=== PATIENT | female | born 1960 | race Caucasian/White ===

== ENCOUNTER → 2020-08-15 | Day surgery (SDC) | payer MEDICARE, SELFPAY ==
[~2020-08-15] MED LIST: CARAFATE1 GM PO; PROTONIX 40MG T40 MG PO; SYNTHROID88 MCG PO; TRAZODONE 100M100 MG PO; VENLAFAXINE HC150 MG PO; ZOCOR10 MG PO
== END | disposition home or self-care (01) ==
LOC: FAS 07:50
DX: K62.1 Rectal polyp (principal); K29.50 Unspecified chronic gastritis without bleeding; K31.89 Other diseases of stomach and duodenum; K21.00 Gastro-esophageal reflux disease with esophagitis, without bleeding; K22.10 Ulcer of esophagus without bleeding; K52.9 Noninfective gastroenteritis and colitis, unspecified; K64.0 First degree hemorrhoids; K44.9 Diaphragmatic hernia without obstruction or gangrene; F32.9 Major depressive disorder, single episode, unspecified; Z86.010 Personal history of colon polyps; Z79.82 Long term (current) use of aspirin; Z79.899 Other long term (current) drug therapy
CPT/HCPCS: 88305; J2250; J2704; J7120

== ENCOUNTER 2021-07-27 07:30 | Inpatient (IN) | payer MEDICARE, OTHER ==
[~2021-07-27] VITALS: Ht 162.6 cm; Wt 72.6 kg
[~2021-07-27 07:30] MED LIST changes: +ALL DAY ALLERGY10 MG PO; +ASCORBIC ACID500 MG PO; +BLACK COHOSH40 M1 PO; +DRISDOL50000 UNIT PO; +FIBER POWDER368 GM PO; +FLAX OIL1000 MG PO; +NEURIVA PLUS B1 EACH PO; +OSTEO BI-FLEX1 EACH PO; +TURMERIC1 GM PO
[2021-07-27 12:07] LABS: BASOPHIL 0.9 % (0-2); EOSINOPHIL 1.8 % (0-5); HCT 41.8 % (37.0-47.0); HGB 13.8 g/dl (12.5-16.0); LYMPHOCYTE 33.4 % (15-48); MCH 30.2 pg (25.0-31.0); MCV 91.5 fL (78.0-100.0); MONOCYTE 8.3 % (0-12); MPV 8.9 fL (6.0-9.5); NEUTROPHIL 55.2 % (41-80); NRBC 0; PLT 312 K/uL (150-400); RBC 4.57 M/uL (4.20-5.40); RDW 12.1 % (11.5-14.0); WBC 6.8 K/uL (4.0-10.5)
[2021-07-27 13:04] LABS: ALBUMIN 3.6 g/dL (3.4-5.0); BILIRUBIN - TOTAL 0.3 mg/dL (0.2-1.0); BUN/CREAT RATIO (CALC) 18.1 RATIO; CREATININE 0.72 mg/dL (0.51-0.95); GLOBULIN (CALCULATION) 3.2 g/dL; POTASSIUM 4.1 mmol/L (3.5-5.1); TOTAL PROTEIN 6.8 g/dL (6.4-8.2)
[2021-07-28 07:26] LABS: HCT 37.1 % (37.0-47.0); HGB 12.3 g/dl (12.5-16.0); MCH 30.8 pg (25.0-31.0); MCHC 33.2 g/dL (32.0-36.0); MCV 92.8 fL (78.0-100.0); MPV 8.8 fL (6.0-9.5); RDW 12.1 % (11.5-14.0); WBC 8.6 K/uL (4.0-10.5)
[2021-07-28 07:46] LABS: BUN/CREAT RATIO (CALC) 10.9 RATIO; CREATININE 0.64 mg/dL (0.51-0.95)
[2021-07-28] MEDS ORDERED: COLACE100 MG PO (08:42)
[2021-07-28] MEDS ORDERED: ACETAMINOPHEN500 M1 PO (08:42)
[2021-07-28] MEDS ORDERED: OXY-IR 5MG5 MG PO (08:42)
== END 2021-07-28 13:00 | disposition home or self-care (01) | DRG 327 ==
LOC: EDSTATUS 07:30 → FMS 07:30 → FAS 07:30 → FSDC 11:08 → FMS 11:15 → FSDC 07-28 13:00
PROVIDERS: ADMIT Student in an Organized Health Care Education/Training Program
PROC: 0BQT4ZZ Repair Diaphragm, Percutaneous Endoscopic Approach (ICD-10-PCS; principal; 2021-07-27 11:15)
PROC: 0DV44ZZ Restriction of Esophagogastric Junction, Percutaneous Endoscopic Approach (ICD-10-PCS; 2021-07-27 11:15)
PROC: 0DJ08ZZ Inspection of Upper Intestinal Tract, Via Natural or Artificial Opening Endoscopic (ICD-10-PCS; 2021-07-27 11:15)
DX: K44.9 Diaphragmatic hernia without obstruction or gangrene (principal); K22.10 Ulcer of esophagus without bleeding; K21.00 Gastro-esophageal reflux disease with esophagitis, without bleeding
CPT/HCPCS: 36415; 80048; 80053; 85025; 87088; C9113; J0690; J1644; J1650; J1885; J2250; J2405; J2704; J2710; J3010; J3480; J7120